=== PATIENT | female | born 2000 | race Caucasian/White ===

== ENCOUNTER 2018-07-28 20:55 | Emergency (ER) | payer OTHER ==
[2018-07-28 21:06] VITALS: BP 109/67
[2018-07-28] MEDS ORDERED: AMOXICILLIN TR/POT CLAVULANATE 500-125 MG TAB PO ONE (21:42)
[2018-07-28] MEDS ORDERED: AMOXICILLIN TRIHYD 250 MG CAPSULE PO ONE (21:43)
--- NOTE | 2018-07-28 21:45 | ER Document Report ---
ED General - General Chief Complaint: Ear Pain Stated Complaint: EAR PAIN Time Seen by Provider: 07/28/18 21:31 TRAVEL OUTSIDE OF THE [place] IN LAST 30 DAYS: No - HPI Onset: Last week Onset/Duration: Constant, Worse Quality of pain: Sharp Severity: Moderate Associated symptoms: None Exacerbated by: Denies Relieved by: Denies Similar symptoms previously: Yes Notes: Patient with history of recurrent ear infections presents to the emergency room for left ear pain. She was diagnosed with otitis externa and started on Ciprodex drops 3 days ago. She states that she has had pain in the ear for last 5 days and it is still getting worse. She denies drainage from the ear as well as fevers. She reports a fullness and decreased hearing in the left ear. She denies sinus congestion, cough, shortness of breath, nausea, vomiting and vision changes. She has seen ENT previously for her recurrent ear infections. She has not been on oral antibiotics in the last 6 months for otitis media. - Related Data Allergies/Adverse Reactions: No Known Allergies Allergy (Unverified 07/28/18 20:59) Past Medical History - Social History Smoking Status: Current Every Day Smoker Cigarette use (# per day): Yes - 1/2 pack Frequency of alcohol use: Occasional Drug Abuse: None Family History: Reviewed & Not Pertinent - Past Medical History Cardiac Medical History: Reports: None Surgical Hx: Negative - Immunizations Immunizations up to date: Yes Review of Systems - Review of Systems Notes: REVIEW OF SYSTEMS: CONSTITUTIONAL : Denies fever, chills, or sweats. Denies recent illness. EENT: Left ear pain. Denies throat pain. Denies nasal or sinus congestion. CARDIOVASCULAR: Denies chest pain. RESPIRATORY: Denies cough, cold, or chest congestion. Denies shortness of breath, difficulty breathing, or wheezing. GASTROINTESTINAL: Denies abdominal pain. Denies nausea, vomiting, or diarrhea. Denies constipation. GENITOURINARY: Denies difficulty urinating, painful urination and urinary frequency. MUSCULOSKELETAL: Denies neck or back pain or joint pain. SKIN: Denies rash or skin lesions. HEMATOLOGIC : Denies easy bruising or bleeding. LYMPHATIC: Denies swollen, enlarged glands. NEUROLOGICAL: Denies altered mental status. Denies headache. Denies weakness or paralysis. Denies problems with gait or speech. Denies sensory or motor loss. PSYCHIATRIC: Denies anxiety or depression. ALL OTHER SYSTEMS REVIEWED AND NEGATIVE. Physical Exam - Vital signs Vitals: Temp Pulse Resp BP Pulse Ox 98.0 F 91 H 20 109/67 98 07/28/18 21:05 07/28/18 21:05 07/28/18 21:05 07/28/18 21:05 07/28/18 21:05 - Notes Notes: PHYSICAL EXAMINATION: GENERAL: Well-appearing, well-nourished and in no acute distress. HEAD: Atraumatic, normocephalic. EYES: Pupils equal round and reactive to light, extraocular movements intact, conjunctiva are normal. ENT: nares patent, oropharynx clear without exudates. Moist mucous membranes. Left external ear canal erythema and edema with tenderness. Left TM erythema, retraction, and purulent effusion. Normal right TM and external canal. No mastoid tenderness bilaterally. NECK: Normal range of motion, supple without lymphadenopathy LUNGS: Breath sounds clear to auscultation bilaterally and equal. No wheezes rales or rhonchi. HEART: Regular rate and rhythm without murmurs ABDOMEN: Soft, nontender, normoactive bowel sounds. No guarding, no rebound. No masses appreciated. EXTREMITIES: Normal range of motion, no pitting edema. No cyanosis. NEUROLOGICAL: No focal neurological deficits. Moves all extremities spontaneously and on command. PSYCH: Normal mood, normal affect. SKIN: Warm, Dry, normal turgor, no rashes or lesions noted. Course - Re-evaluation Re-evalutation: 07/28/18 21:47 Vitals reviewed and stable. Patient afebrile and nontoxic. She has acute otitis media and externa on the left side. She was encouraged to continue using the Ciprodex drops that she had already been prescribed. She will be started on Augmentin for her otitis media. She will follow with her primary care in 3-5 days for reevaluation. She will return for new or worsening symptoms. - Vital Signs Vital signs: Temp Pulse Resp BP Pulse Ox 98.0 F 91 H 20 109/67 98 07/28/18 21:05 07/28/18 21:05 07/28/18 21:05 07/28/18 21:05 07/28/18 21:05 Discharge - Discharge Clinical Impression: Otitis media Qualifiers: Otitis media type: suppurative Chronicity: acute Laterality: left Recurrence: not specified as recurrent Spontaneous tympanic membrane rupture: without spontaneous rupture Qualified Code(s): H66.002 - Acute suppurative otitis media without spontaneous rupture of ear drum, left ear Otitis externa, left Qualifiers: Otitis externa type: unspecified type Chronicity: acute Qualified Code(s): H60.502 - Unspecified acute noninfective otitis externa, left ear Condition: Stable Disposition: HOME, SELF-CARE Instructions: Use of Ear Drops ([facility]), Otitis Externa ([facility]), Otitis Media ([facility]) , Family Physicians / Practices Additional Instructions: Follow-up with 1 of the primary care physicians provided or your primary care provider in 3-5 days for reevaluation Prescriptions: Amox Tr/Potassium Clavulanate [Augmentin 875-125 Tablet] 1 tab PO BID 10 Days tablet
== END 2018-07-28 21:53 | disposition home or self-care (01) ==
LOC: ER 20:55
DX: H66.002 Acute suppurative otitis media without spontaneous rupture of ear drum, left ear (principal); H60.502 Unspecified acute noninfective otitis externa, left ear; H92.02 Otalgia, left ear; F17.210 Nicotine dependence, cigarettes, uncomplicated
CPT/HCPCS: 99282; J3490